=== PATIENT | male | born 1965 | race Two or more races ===

== ENCOUNTER 2017-05-25 11:21 | Emergency (ER) | payer OTHER ==
[~2017-05-25] VITALS: Ht 165.1 cm; Wt 105.3 kg
[2017-05-25] MEDS ORDERED: HYDROcodone/APAP 5/325 TABLET PO ONE (12:00)
[2017-05-25] MEDS ORDERED: ONDANSETRON ODT 4 MG PO ONE (12:00)
[2017-05-25] MEDS ORDERED: ONDANSETRON ODT 4 MG ONE (12:34)
[2017-05-25] MEDS ORDERED: HYDROcodone/APAP 5/325 TABLET ONE (12:34)
[2017-05-25] MEDS ORDERED: HYDROmorphone 1 MG/ML, 1ML IVPush PRN (13:00)
[2017-05-25] MEDS ORDERED: SODIUM CHLORIDE FLUSH 10ML SYR IVF ONE (13:00)
[2017-05-25] MEDS ORDERED: ONDANSETRON 2MG/ML, 2ML IVPush ONE (13:00)
[2017-05-25] MEDS ORDERED: HYDROmorphone 1 MG/ML, 1ML ONE (13:02)
[2017-05-25] MEDS ORDERED: ONDANSETRON 2MG/ML, 2ML ONE (13:03)
[2017-05-25 13:40] LABS: BASOPHILS # (AUTO) 0.04 x10^3/uL (0-0.1); BASOPHILS % (AUTO) 0 % (0-1); EOSINOPHILS # (AUTO) 0.05 x10^3/uL (0-0.4); EOSINOPHILS % (AUTO) 0 % (1-7); LYMPHOCYTES # (AUTO) 1.16 x10^3/uL (1-3.4); LYMPHOCYTES % (AUTO) 10 % (22-44); MD NO; MEAN CORPUSCULAR HEMOGLOBIN 30.5 pg (27.5-34.5); MEAN CORPUSCULAR HGB CONC 33.5 g/dL (33.2-36.2); MEAN PLATELET VOLUME 8.6 fL (7.4-10.4); MONOCYTES # (AUTO) 0.39 x10^3/uL (0.2-0.8); MONOCYTES % (AUTO) 3 % (2-9); NEUTROPHILS # (AUTO) 10.17 x10^3/uL (1.8-6.8); NEUTROPHILS % (AUTO) 86 % (42-75); PLATELET COUNT 276 x10^3/uL (130-400); RED BLOOD COUNT 5.69 x10^6/uL (4.38-5.82); RED CELL DISTRIBUTION WIDTH 12.9 % (9.4-14.8)
[2017-05-25 13:45] LABS: INTERNATIONAL NORMALIZED RATIO 1.06 (0.93-1.1)
[2017-05-25 13:49] LABS: ALBUMIN 3.9 g/dL (3.4-5.0); ANION GAP 9 mmol/L (5-15); CALCIUM 8.6 mg/dL (8.5-10.1); CHLORIDE 102 mmol/L (98-107)
[2017-05-25 14:59] VITALS: BP 157/69
== END 2017-05-25 15:01 | disposition home or self-care (01) ==
LOC: ED 14:55
DX: S06.0X9A Concussion with loss of consciousness of unspecified duration, initial encounter (principal); I10 Essential (primary) hypertension; X58.XXXA Exposure to other specified factors, initial encounter; Y93.89 Activity, other specified; Y92.89 Other specified places as the place of occurrence of the external cause; Y99.8 Other external cause status
CPT/HCPCS: 36415; 70450; 80048; 82040; 85025; 85610; 85730; 93005; 96374; 96375; 99285; J1170; J2405; Q0162